=== PATIENT | male | born 1960 | race Hispanic/Latino ===

== ENCOUNTER 2023-01-18 11:35 | Inpatient (IN) | payer OTHER ==
[~2023-01-18] VITALS: Ht 165.1 cm; Wt 68.9 kg
[~2023-01-18 11:35] MED LIST: AEC81 PO; ATOR40TA69 PO; CARV3.12 PO; FURO40TA5 PO; LEVO-70 PO; LISI5TAB21 PO
[2023-01-18 12:02] LABS: BASOPHILS % (AUTO) 0.3 % (0.0-5.0); EOSINOPHILS % (AUTO) 2.2 % (0.0-8.0); HEMATOCRIT 41.6 % (42-54); LYMPHOCYTES % (AUTO) 12.8 % (21.0-51.0); MEAN CORPUSCULAR HEMOGLOBIN 28.2 pg (27.0-33.0); MEAN CORPUSCULAR HGB CONC 32.2 g/dL (32.0-36.0); MEAN CORPUSCULAR VOLUME 87.4 fL (79-99); NEUTROPHILS % (AUTO) 78.3 % (40.0-77.0); PLATELET COUNT (AUTO) 301 K/uL (130-400); RED BLOOD CELL COUNT(AUTO) 4.76 MIL/uL (4.50-6.20); RED CELL DISTRIBUTION WIDTH 15.9 % (11.0-15.5); WHITE BLOOD COUNT (AUTO) 10.3 K/uL (4.8-10.8)
[2023-01-18 12:16] LABS: INR 1.05 (0.85-1.15); PROTHROMBIN TIME 11.4 SEC (9.6-11.6)
[2023-01-18 12:20] LABS: POTASSIUM 4.2 mmol/L (3.5-5.1)
[2023-01-18 12:21] LABS: B-TYPE NATRIURETIC PEPTIDE 930 pg/mL (0-100)
[2023-01-18 12:25] LABS: ALBUMIN 2.8 g/dL (3.5-5.0); TOTAL PROTEIN, SERUM 6.5 g/dL (6.0-8.3)
[2023-01-18] MEDS ORDERED: NITROGLYCERIN 1GM OINT 1 INCH/1GM TD ONE (13:00)
[2023-01-18] MEDS ORDERED: ASPIRIN 325MG TAB PO ONE (13:00)
[2023-01-18] MEDS ORDERED: FUROSEMIDE 40MG VIAL IV ONE (16:30)
[2023-01-18] MEDS ORDERED: ONDANSETRON 4MG INJ IVP PRN (17:00)
[2023-01-18] MEDS ORDERED: ACETAMINOPHEN 325 MG TAB PO PRN (17:00)
[2023-01-18] MEDS: CARVEDILOL 3.125 MG TABLET PO SCH (21:24)
[2023-01-18 23:26] VITALS: BP 128/80
[2023-01-19 03:27] VITALS: BP 113/73
[2023-01-19 03:41] LABS: BASOPHILS % (AUTO) 0.3 % (0.0-5.0); EOSINOPHILS % (AUTO) 4.3 % (0.0-8.0); LYMPHOCYTES % (AUTO) 18.7 % (21.0-51.0); MEAN CORPUSCULAR HEMOGLOBIN 27.8 pg (27.0-33.0); MEAN CORPUSCULAR HGB CONC 31.7 g/dL (32.0-36.0); MEAN CORPUSCULAR VOLUME 87.7 fL (79-99); MONOCYTES % (AUTO) 7.8 % (3.0-13.0); NEUTROPHILS % (AUTO) 68.6 % (40.0-77.0); PLATELET COUNT (AUTO) 254 K/uL (130-400); RED BLOOD CELL COUNT(AUTO) 3.99 MIL/uL (4.50-6.20); RED CELL DISTRIBUTION WIDTH 15.8 % (11.0-15.5); WHITE BLOOD COUNT (AUTO) 11.6 K/uL (4.8-10.8)
[2023-01-19 04:01] LABS: ALBUMIN 2.3 g/dL (3.5-5.0); CREATININE 1.3 mg/dL (0.5-1.5); MAGNESIUM 1.9 mg/dL (1.80-2.40); POTASSIUM 4.5 mmol/L (3.5-5.1); TOTAL PROTEIN, SERUM 5.7 g/dL (6.0-8.3)
[2023-01-19 04:20] LABS: B-TYPE NATRIURETIC PEPTIDE 666 pg/mL (0-100)
[2023-01-19] MEDS ORDERED: MAGNESIUM 2GM PREMIX 50ML 50 ML IV ONE (08:18)
[2023-01-19 08:30] VITALS: BP 120/89
[2023-01-19] MEDS: CARVEDILOL 3.125 MG TABLET PO SCH ×2 (08:46→21:15)
[2023-01-19] MEDS: ASPIRIN 81 MG EC TAB PO SCH (08:46)
[2023-01-19] MEDS ORDERED: FUROSEMIDE 20MG VIAL IV SCH (09:00)
[2023-01-19] MEDS ORDERED: LISINOPRIL 5 MG TABLET PO ONE (09:00)
[2023-01-19] MEDS: LEVOFLOXACIN 500 MG/D5W 100 ML 100 ML IV SCH (11:30)
[2023-01-19 12:16] VITALS: BP 117/77
[2023-01-19 16:35] VITALS: BP 123/65
[2023-01-19 19:03] VITALS: BP 123/63
[2023-01-19] MEDS: FUROSEMIDE 40MG VIAL IV SCH (21:14)
[2023-01-19] MEDS ORDERED: IPRATROPIUM 0.5 MG/2.5 ML INH IH SCH (23:00)
[2023-01-19 23:25] VITALS: BP 108/76
[2023-01-20 03:42] VITALS: BP 120/82
[2023-01-20 03:46] VITALS: BP 134/61
[2023-01-20 08:07] LABS: BASOPHILS % (AUTO) 0.4 % (0.0-5.0); HEMATOCRIT 41.8 % (42-54); LYMPHOCYTES % (AUTO) 18.5 % (21.0-51.0); MEAN CORPUSCULAR HEMOGLOBIN 27.6 pg (27.0-33.0); MEAN CORPUSCULAR HGB CONC 31.8 g/dL (32.0-36.0); MEAN CORPUSCULAR VOLUME 86.7 fL (79-99); NEUTROPHILS % (AUTO) 71.6 % (40.0-77.0); PLATELET COUNT (AUTO) 294 K/uL (130-400); RED BLOOD CELL COUNT(AUTO) 4.82 MIL/uL (4.50-6.20); RED CELL DISTRIBUTION WIDTH 15.6 % (11.0-15.5); WHITE BLOOD COUNT (AUTO) 10.5 K/uL (4.8-10.8)
[2023-01-20 08:16] LABS: POTASSIUM 4.4 mmol/L (3.5-5.1)
[2023-01-20 08:25] LABS: ALBUMIN 2.8 g/dL (3.5-5.0); TOTAL PROTEIN, SERUM 6.7 g/dL (6.0-8.3)
[2023-01-20 08:53] VITALS: BP 117/72
[2023-01-20] MEDS: LEVOFLOXACIN 500 MG/D5W 100 ML 100 ML IV SCH (09:05)
[2023-01-20] MEDS: ASPIRIN 81 MG EC TAB PO SCH (09:05)
[2023-01-20] MEDS: CARVEDILOL 3.125 MG TABLET PO SCH (09:05)
[2023-01-20] MEDS: FUROSEMIDE 40MG VIAL IV SCH (09:05)
[2023-01-20] MEDS ORDERED: LISI5TAB21 PO (11:37)
[2023-01-20] MEDS ORDERED: AEC81 PO (11:37)
[2023-01-20] MEDS ORDERED: CARV3.12 PO (11:37)
[2023-01-20] MEDS ORDERED: LEVO-70 PO (11:37)
[2023-01-20] MEDS ORDERED: FURO40TA5 PO (11:37)
[2023-01-20] MEDS ORDERED: ATOR40TA69 PO (11:37)
[2023-01-20 12:32] VITALS: BP 111/69
== END 2023-01-20 13:15 | disposition home or self-care (01) | DRG 291 ==
LOC: EDH 11:35 → EDHIP 11:36 → 2AH 23:23
PROVIDERS: ADMIT Hospitalist; ATTEND Hospitalist
DX: I11.0 Hypertensive heart disease with heart failure (principal); I50.43 Acute on chronic combined systolic (congestive) and diastolic (congestive) heart failure; E44.0 Moderate protein-calorie malnutrition; I25.110 Atherosclerotic heart disease of native coronary artery with unstable angina pectoris; F14.90 Cocaine use, unspecified, uncomplicated; I34.0 Nonrheumatic mitral (valve) insufficiency; F17.200 Nicotine dependence, unspecified, uncomplicated; Z95.5 Presence of coronary angioplasty implant and graft; Z79.82 Long term (current) use of aspirin; Z79.899 Other long term (current) drug therapy; Z91.199 Patient's noncompliance with other medical treatment and regimen due to unspecified reason; Z68.25 Body mass index [BMI] 25.0-25.9, adult
CPT/HCPCS: 36415; 71045; 80053; 83605; 83735; 83880; 84484; 85025; 85610; 93005; 94640; G0378; J1940; J1956; J3475

== ENCOUNTER 2023-03-03 10:40 | Emergency (ER) | payer OTHER ==
[~2023-03-03] VITALS: Ht 165.1 cm; Wt 65.8 kg
[~2023-03-03 10:40] MED LIST changes: +FURO-152 PO
[2023-03-03 11:15] LABS: HEMATOCRIT 43.4 % (42-54); MEAN CORPUSCULAR HGB CONC 31.8 g/dL (32.0-36.0); MEAN CORPUSCULAR VOLUME 84.9 fL (79-99); RED BLOOD CELL COUNT(AUTO) 5.11 MIL/uL (4.50-6.20); RED CELL DISTRIBUTION WIDTH 17.2 % (11.0-15.5); WHITE BLOOD COUNT (AUTO) 9.7 K/uL (4.8-10.8)
[2023-03-03 11:25] LABS: CREATININE 1.2 mg/dL (0.5-1.5); POTASSIUM 5.1 mmol/L (3.5-5.1)
[2023-03-03 11:30] LABS: ALBUMIN 2.9 g/dL (3.5-5.0); TOTAL PROTEIN, SERUM 6.6 g/dL (6.0-8.3)
[2023-03-03 12:02] LABS: APPEARANCE,URINE CLEAR (CLEAR); BILIRUBIN,URINE NEGATIVE (NEGATIVE); COLOR,URINE COLORLESS (YELLOW); GLUCOSE, URINE (UA) NEGATIVE (NEGATIVE); KETONES,URINE NEGATIVE (NEGATIVE); LEUKOCYTE ESTERASE ,URINE NEGATIVE Leu/uL (NEGATIVE); NITRATE,URINE NEGATIVE (NEGATIVE); OCCULT BLOOD,URINE NEGATIVE (NEGATIVE); PROTEIN,URINE NEGATIVE (NEGATIVE); UROBILINOGEN,URINE 0.2 mg/dL (0.2-1.0)
[2023-03-03] MEDS ORDERED: FUROSEMIDE 40MG VIAL ONE (12:20)
[2023-03-03] MEDS ORDERED: FUROSEMIDE 40MG VIAL IV ONE (12:30)
[2023-03-03 13:52] VITALS: BP 115/90
== END 2023-03-03 14:22 | disposition home or self-care (01) ==
LOC: EDH 10:40
DX: R06.00 Dyspnea, unspecified (principal); I50.43 Acute on chronic combined systolic (congestive) and diastolic (congestive) heart failure; F17.200 Nicotine dependence, unspecified, uncomplicated; Z90.49 Acquired absence of other specified parts of digestive tract; Z79.82 Long term (current) use of aspirin; Z79.899 Other long term (current) drug therapy
CPT/HCPCS: 99285; 96374; 71045; 84484; 80053; 83880; 85027; 81003; 36415; 93005; J1940

== ENCOUNTER 2023-03-20 09:26 | Inpatient (IN) | payer OTHER ==
[~2023-03-20] VITALS: Ht 165.1 cm; Wt 66.6 kg
[2023-03-20 09:52] LABS: BASOPHILS % (AUTO) 0.5 % (0.0-5.0); EOSINOPHILS % (AUTO) 3.6 % (0.0-8.0); HEMATOCRIT 39.2 % (42-54); LYMPHOCYTES % (AUTO) 14.9 % (21.0-51.0); MEAN CORPUSCULAR HEMOGLOBIN 27.1 pg (27.0-33.0); MEAN CORPUSCULAR HGB CONC 31.6 g/dL (32.0-36.0); MEAN CORPUSCULAR VOLUME 85.6 fL (79-99); MONOCYTES % (AUTO) 7.6 % (3.0-13.0); NEUTROPHILS % (AUTO) 72.8 % (40.0-77.0); PLATELET COUNT (AUTO) 274 K/uL (130-400); RED BLOOD CELL COUNT(AUTO) 4.58 MIL/uL (4.50-6.20); RED CELL DISTRIBUTION WIDTH 18.1 % (11.0-15.5); WHITE BLOOD COUNT (AUTO) 10.1 K/uL (4.8-10.8)
[2023-03-20] MEDS ORDERED: ALBUTEROL 0.083% 2.5 MG/3 ML INH IH ONE (10:00)
[2023-03-20] MEDS ORDERED: ASPIRIN 325MG TAB PO ONE (10:00)
[2023-03-20] MEDS ORDERED: GUAIFENESIN 600 MG TABLET.ER PO ONE (10:00)
[2023-03-20] MEDS ORDERED: NITROGLYCERIN 1GM OINT 1 INCH/1GM TD ONE (10:00)
[2023-03-20] MEDS ORDERED: ENOXAPARIN SODIUM 80 MG/0.8 ML SQ ONE (10:00)
[2023-03-20] MEDS ORDERED: SOLU-MEDROL 125MG VIAL IVP ONE (10:00)
[2023-03-20 10:13] LABS: POTASSIUM 4.3 mmol/L (3.5-5.1)
[2023-03-20 10:23] LABS: TOTAL PROTEIN, SERUM 6.5 g/dL (6.0-8.3)
[2023-03-20] MEDS ORDERED: ACETAMINOPHEN 500 MG TABLET PO PRN (14:30)
[2023-03-20] MEDS ORDERED: NITROGLYCERIN 0.4 MG SL TAB SL PRN (14:30)
[2023-03-20] MEDS ORDERED: ONDANSETRON 4MG INJ IVP PRN (14:30)
[2023-03-20] MEDS: BUDESONIDE 0.5 MG/2 ML INH IH SCH ×2 (14:30→18:16)
[2023-03-20] MEDS: CEFTRIAXONE 1G VIAL IVPB SCH (14:37)
[2023-03-20] MEDS: FUROSEMIDE 40MG VIAL IV SCH (14:37)
[2023-03-20] MEDS ORDERED: DOCU100C33 PO (14:49)
[2023-03-20 14:59] LABS: INR 1.01 (0.85-1.15); PROTHROMBIN TIME 11.7 SEC (9.6-11.6)
[2023-03-20 15:01] LABS: PARTIAL THROMBOPLASTIN TIME 29.9 SEC (26.3-35.5)
[2023-03-20 15:05] LABS: APPEARANCE,URINE CLEAR (CLEAR); BILIRUBIN,URINE NEGATIVE (NEGATIVE); COLOR,URINE LIGHT-YELLOW (YELLOW); GLUCOSE, URINE (UA) NEGATIVE (NEGATIVE); KETONES,URINE NEGATIVE (NEGATIVE); LEUKOCYTE ESTERASE ,URINE NEGATIVE Leu/uL (NEGATIVE); NITRATE,URINE NEGATIVE (NEGATIVE); OCCULT BLOOD,URINE NEGATIVE (NEGATIVE); PH,URINE 7.5 (5.0-8.0); PROTEIN,URINE NEGATIVE (NEGATIVE); UROBILINOGEN,URINE 0.2 mg/dL (0.2-1.0)
[2023-03-20 15:10] LABS: BACTERIA,URINE RARE /HPF (None Seen); MUCUS,URINE RARE LPF (None Seen); OTHER CASTS, URINE 3 /LPF (None Seen); RBC,URINE 0-1 /HPF (0-1); WBC,URINE 0-1 /HPF (0-1)
[2023-03-20] MEDS ORDERED: GUAIFENESIN-DM 200/20 MG 10 ML PO PRN (15:30)
[2023-03-20 15:45] LABS: AMPHET/METH SCREEN,URINE NEGATIVE (NEGATIVE); BARBITURATE SCREEN, URINE NEGATIVE (NEGATIVE); BENZODIAZEPINES SCREEN,URINE NEGATIVE (NEGATIVE); CANNABINOID SCREEN,URINE NEGATIVE (NEGATIVE); COCAINE SCREEN,URINE POSITIVE (NEGATIVE); OPIATE SCREEN,URINE NEGATIVE (NEGATIVE); PHENCYCLIDINE SCREEN,URINE NEGATIVE (NEGATIVE)
[2023-03-20] MEDS: PANTOPRAZOLE 40 MG/VIAL IVP SCH (16:47)
[2023-03-20] MEDS: SOLU-MEDROL 40MG VIAL IVP SCH (16:47)
[2023-03-20 17:15] VITALS: BP 145/72
[2023-03-20] MEDS ORDERED: SODIUM CHLORIDE 3% FOR INHALATION 4 ML/AMP VIAL.NEB IH ONE (18:05)
[2023-03-20] MEDS: IPRATROPIUM/ALBUTEROL SULFATE 3 ML SOLUTION IH SCH ×2 (18:17→23:00)
[2023-03-20 19:30] VITALS: BP 130/75
[2023-03-20] MEDS: DOXYCYCLINE HYCLATE 100 MG TABLET PO SCH (20:07)
[2023-03-20 21:48] LABS: CREATININE 1.2 mg/dL (0.5-1.5); MAGNESIUM 1.8 mg/dL (1.80-2.40); POTASSIUM 4.5 mmol/L (3.5-5.1)
[2023-03-21] MEDS ORDERED: MAGNESIUM 2GM PREMIX 50ML 50 ML IV SCH
[2023-03-21 00:30] VITALS: BP 120/73
[2023-03-21] MEDS: SOLU-MEDROL 40MG VIAL IVP SCH ×3 (00:54→15:00)
[2023-03-21 04:00] VITALS: BP 118/67
[2023-03-21 04:06] LABS: BASOPHILS % (AUTO) 0.1 % (0.0-5.0); HEMATOCRIT 34.2 % (42-54); LYMPHOCYTES % (AUTO) 4.8 % (21.0-51.0); MEAN CORPUSCULAR HEMOGLOBIN 26.7 pg (27.0-33.0); MEAN CORPUSCULAR HGB CONC 31.9 g/dL (32.0-36.0); MEAN CORPUSCULAR VOLUME 83.8 fL (79-99); MONOCYTES % (AUTO) 2.7 % (3.0-13.0); NEUTROPHILS % (AUTO) 91.9 % (40.0-77.0); PLATELET COUNT (AUTO) 296 K/uL (130-400); RED BLOOD CELL COUNT(AUTO) 4.08 MIL/uL (4.50-6.20); RED CELL DISTRIBUTION WIDTH 17.6 % (11.0-15.5); WHITE BLOOD COUNT (AUTO) 13.4 K/uL (4.8-10.8)
[2023-03-21 04:21] LABS: CREATININE 1.1 mg/dL (0.5-1.5); MAGNESIUM 2.2 mg/dL (1.80-2.40)
[2023-03-21 04:46] LABS: ABG BASE EXCESS -2.1 mmol/L (-2.0-3.0); ABG HCO3 20.8 mmol/L (21.0-28.0); ABG OXYGEN SATURATION 84.2 % (95.0-99.0); ABG PCO2 30 mmHg (35-48)
[2023-03-21] MEDS: FUROSEMIDE 40MG VIAL IV SCH ×2 (04:51→15:00)
[2023-03-21] MEDS: NICOTINE 21 MG/ 24 HR PATCH TD SCH ×2 (05:09→08:35)
[2023-03-21] MEDS: IPRATROPIUM/ALBUTEROL SULFATE 3 ML SOLUTION IH SCH ×4 (06:16→23:59)
[2023-03-21] MEDS: BUDESONIDE 0.5 MG/2 ML INH IH SCH ×2 (06:20→18:20)
[2023-03-21 08:13] VITALS: BP 127/76
[2023-03-21] MEDS: DOXYCYCLINE HYCLATE 100 MG TABLET PO SCH ×2 (08:34→20:00)
[2023-03-21] MEDS: ASPIRIN 81 MG EC TAB PO SCH (08:34)
[2023-03-21] MEDS: ENOXAPARIN SODIUM 40 MG/0.4 ML SYRINGE SQ SCH (08:39)
[2023-03-21] MEDS ORDERED: LISINOPRIL 5 MG TABLET PO ONE (09:00)
[2023-03-21] MEDS ORDERED: ASPIRIN 81 MG EC TAB PO SCH (09:00)
[2023-03-21 12:00] VITALS: BP 113/86
[2023-03-21] MEDS: PANTOPRAZOLE 40 MG/VIAL IVP SCH (15:00)
[2023-03-21] MEDS: CEFTRIAXONE 1G VIAL IVPB SCH (15:00)
[2023-03-21 16:41] VITALS: BP 126/89
[2023-03-21 20:17] VITALS: BP 132/98
[2023-03-22 00:18] VITALS: BP 131/84
[2023-03-22] MEDS: SOLU-MEDROL 40MG VIAL IVP SCH ×3 (00:41→15:12)
[2023-03-22 04:30] VITALS: BP 121/79
[2023-03-22 04:36] LABS: BASOPHILS % (AUTO) 0.1 % (0.0-5.0); MEAN CORPUSCULAR HGB CONC 31.7 g/dL (32.0-36.0); MEAN CORPUSCULAR VOLUME 85.2 fL (79-99); MONOCYTES % (AUTO) 3.5 % (3.0-13.0); NEUTROPHILS % (AUTO) 91.7 % (40.0-77.0); PLATELET COUNT (AUTO) 296 K/uL (130-400); RED BLOOD CELL COUNT(AUTO) 4.11 MIL/uL (4.50-6.20); RED CELL DISTRIBUTION WIDTH 18.1 % (11.0-15.5); WHITE BLOOD COUNT (AUTO) 19.6 K/uL (4.8-10.8)
[2023-03-22 04:49] LABS: ALBUMIN 2.8 g/dL (3.5-5.0); CREATININE 1.1 mg/dL (0.5-1.5); POTASSIUM 4.1 mmol/L (3.5-5.1); TOTAL PROTEIN, SERUM 6.1 g/dL (6.0-8.3)
[2023-03-22] MEDS: FUROSEMIDE 40MG VIAL IV SCH ×2 (05:05→15:12)
[2023-03-22 05:19] LABS: B-TYPE NATRIURETIC PEPTIDE 731 pg/mL (0-100)
[2023-03-22] MEDS: IPRATROPIUM/ALBUTEROL SULFATE 3 ML SOLUTION IH SCH ×4 (06:45→23:29)
[2023-03-22] MEDS: BUDESONIDE 0.5 MG/2 ML INH IH SCH ×2 (06:45→20:15)
[2023-03-22] MEDS: ASPIRIN 81 MG EC TAB PO SCH (08:06)
[2023-03-22] MEDS: ENOXAPARIN SODIUM 40 MG/0.4 ML SYRINGE SQ SCH (08:06)
[2023-03-22] MEDS: DOXYCYCLINE HYCLATE 100 MG TABLET PO SCH ×2 (08:06→20:45)
[2023-03-22] MEDS: NICOTINE 21 MG/ 24 HR PATCH TD SCH (08:07)
[2023-03-22 08:30] VITALS: BP 129/80
[2023-03-22 12:19] VITALS: BP 142/86
[2023-03-22] MEDS: PANTOPRAZOLE 40 MG/VIAL IVP SCH (15:12)
[2023-03-22] MEDS: CEFTRIAXONE 1G VIAL IVPB SCH (15:12)
[2023-03-22 16:22] LABS: CHOLESTEROL 162 mg/dL (<200); HDL CHOLESTEROL 45 mg/dL (29-71); LDL DIRECT 109 mg/dL (0-99); TRIGLYCERIDES 39 mg/dL (30-200)
[2023-03-22 16:23] LABS: HEMOGLOBIN A1C 5.8 % (4.0-6.0)
[2023-03-22 16:59] VITALS: BP 133/88
[2023-03-22 19:25] VITALS: BP 137/88
[2023-03-23] MEDS: SOLU-MEDROL 40MG VIAL IVP SCH ×2 (00:15→08:13)
[2023-03-23 00:25] VITALS: BP 128/84
[2023-03-23 03:25] VITALS: BP 131/88
[2023-03-23] MEDS: FUROSEMIDE 40MG VIAL IV SCH ×2 (03:32→14:13)
[2023-03-23 04:45] LABS: HEMATOCRIT 40.6 % (42-54); MEAN CORPUSCULAR HEMOGLOBIN 26.6 pg (27.0-33.0); MEAN CORPUSCULAR HGB CONC 31.5 g/dL (32.0-36.0); MEAN CORPUSCULAR VOLUME 84.4 fL (79-99); RED BLOOD CELL COUNT(AUTO) 4.81 MIL/uL (4.50-6.20); RED CELL DISTRIBUTION WIDTH 18.5 % (11.0-15.5); WHITE BLOOD COUNT (AUTO) 19.3 K/uL (4.8-10.8)
[2023-03-23 04:58] LABS: ALBUMIN 3.2 g/dL (3.5-5.0); CREATININE 1.2 mg/dL (0.5-1.5); MAGNESIUM 1.9 mg/dL (1.80-2.40); POTASSIUM 4.5 mmol/L (3.5-5.1); TOTAL PROTEIN, SERUM 6.9 g/dL (6.0-8.3)
[2023-03-23] MEDS: IPRATROPIUM/ALBUTEROL SULFATE 3 ML SOLUTION IH SCH ×2 (06:51→11:42)
[2023-03-23] MEDS: BUDESONIDE 0.5 MG/2 ML INH IH SCH (06:51)
[2023-03-23] MEDS: NICOTINE 21 MG/ 24 HR PATCH TD SCH (08:13)
[2023-03-23] MEDS: DOXYCYCLINE HYCLATE 100 MG TABLET PO SCH (08:13)
[2023-03-23] MEDS: ASPIRIN 81 MG EC TAB PO SCH (08:13)
[2023-03-23] MEDS: ENOXAPARIN SODIUM 40 MG/0.4 ML SYRINGE SQ SCH (08:15)
[2023-03-23 08:30] VITALS: BP 118/70
[2023-03-23 12:21] VITALS: BP 145/67
[2023-03-23] MEDS: CEFTRIAXONE 1G VIAL IVPB SCH (14:13)
== END 2023-03-23 14:35 | disposition home or self-care (01) | DRG 291 ==
LOC: EDH 09:26 → EDHIP 09:27 → 2DH 16:55
PROVIDERS: ADMIT Internal Medicine; ATTEND Internal Medicine
DX: I11.0 Hypertensive heart disease with heart failure (principal); I50.43 Acute on chronic combined systolic (congestive) and diastolic (congestive) heart failure; J96.01 Acute respiratory failure with hypoxia; J44.1 Chronic obstructive pulmonary disease with (acute) exacerbation; I25.5 Ischemic cardiomyopathy; E78.5 Hyperlipidemia, unspecified; F17.210 Nicotine dependence, cigarettes, uncomplicated; I25.10 Atherosclerotic heart disease of native coronary artery without angina pectoris; F14.10 Cocaine abuse, uncomplicated; Z20.822 Contact with and (suspected) exposure to COVID-19; Z59.00 Homelessness unspecified; Z91.199 Patient's noncompliance with other medical treatment and regimen due to unspecified reason; Z79.899 Other long term (current) drug therapy
CPT/HCPCS: 36415; 36600; 71045; 80048; 80053; 80061; 80305; 81001; 82306; 82435; 82550; 82803; 82947; 83036; 83605; 83735; 83874; 83880; 84132; 84145; 84295; 84484; 85018; 85025; 85027; 85610; 85651; 85730; 86140; 87071; 87205; 87635; 87804; 93005; 94640; 94664; C9113; C9803; G0378; J0696; J1650; J1940; J2920; J2930; J3475